=== PATIENT | male | born 1955 | race Caucasian/White ===

== ENCOUNTER 2017-05-16 10:55 | Emergency (ER) | payer BC ==
[~2017-05-16] VITALS: Ht 172.7 cm; Wt 75.7 kg
[2017-05-16] MEDS ORDERED: KEFLEX500 MG PO (14:01)
[2017-05-16] MEDS ORDERED: TYLENOL WITH C1 EACH PO (14:01)
[2017-05-16 14:16] VITALS: BP 129/99
== END 2017-05-16 14:17 | disposition home or self-care (01) ==
LOC: EME 10:55
PROC: 3E0234Z Introduction of Serum, Toxoid and Vaccine into Muscle, Percutaneous Approach (ICD-10-PCS; principal; 2017-05-16)
DX: S61.442A Puncture wound with foreign body of left hand, initial encounter (principal); W29.4XXA Contact with nail gun, initial encounter; Z23 Encounter for immunization; Z87.891 Personal history of nicotine dependence
CPT/HCPCS: 73130; 99281; 99284; J0690; J3010; J7030